=== PATIENT | female | born 1960 | race Caucasian/White ===

== ENCOUNTER 2021-11-12 15:22 | Outpatient (REF) | payer BC, SELFPAY ==
[2021-11-12 17:43] LABS: HCT 42.4 % (36.0-46.0); HGB 13.6 g/dL (11.2-15.7); MCH 30.3 pg (27.0-33.0); MCHC 32.1 % (32.0-36.0); MCV 94.4 fL (80-95); MPV 11.8 fL (8.0-11.0); Platelet Count 220 10^3/uL (130-400); RBC 4.49 10^6/uL (3.93-5.22); RDW 13.2 % (11.7-14.6); RDW-SD 45.5 fL; WBC 5.57 10^3/uL (4.4-10.8)
[2021-11-12 18:40] LABS: Anion Gap 7.7 mmol/L (3-11); BUN 12 mg/dL (7-18); CO2 29.3 mmol/L (21.0-32.0); CREATININE 0.8 mg/dL (0.55-1.02); Chloride 104 mmol/L (98-107); Glucose 94 mg/dL (74-106); Potassium 3.9 mmol/L (3.5-5.1); Sodium 141 mmol/L (136-145)
[2021-11-13 15:08] LABS: Calculated LDL 129 mg/dL (<100); Cholesterol 234 mg/dL (<200); HDL Cholesterol 81 mg/dL (40-60); Triglyceride 121 mg/dL (<150)
== END 2021-11-12 15:23 | disposition home or self-care (01) ==
LOC: NCHCN 15:22
PROVIDERS: Visit Provider Physician Assistant
DX: Z00.00 Encounter for general adult medical examination without abnormal findings (principal)
CPT/HCPCS: 80048; 80061; 85027

== ENCOUNTER 2021-11-21 00:56 | Outpatient (CLI) | payer BC, SELFPAY ==
--- NOTE | 2021-11-21 06:59 | DI.CT_ITS ---
Exam(s) CT ABDOMEN PELVIS WO/W EXAM: CT ABDOMEN PELVIS WO/W CLINICAL HISTORY: r/o mass/stone,hematuria,r31.9. TECHNIQUE: Imaging Protocol: Axial computed tomography images with coronal and sagittal reformatted images were created and reviewed CONTRAST MATERIAL: Intravenous: Omnipaque-350 100cc Oral: None COMPARISON: No exams were available for comparison FINDINGS: VISUALIZED LUNG BASES: No nodules nor pleural effusions evident. ABDOMEN: There is no ascites. LIVER: There is a tiny cyst in the caudate lobe. No other significant focal hepatic findings . Ther e is no dilatation of intrahepatic ducts. GALLBLADDER/BILIARY: No obvious gallbladder pathology. CBD is not dilated. PANCREAS: No evidence of pancreatic mass nor dilatation of the pancreatic duct. SPLEEN: Spleen is not enlarged. No obvious intrasplenic lesions. Splenic and portal veins are paten t. ADRENALS: There are no significant adrenal masses. KIDNEYS: Kidneys exhibit normal size and position and orientation. No cysts evident. No solid renal masses. No calculi nor hydronephrosis.. There is a solitary ureter on each side which exhibits nor mal diameter. No evidence of ureterocele. URINARY BLADDER: Appears unremarkable. No masses. No diverticuli. There are no radiopaque calculi in the urinary bladder. ABDOMINAL AORTA: Abdominal aorta is not enlarged. LYMPH NODES:There is no retroperitoneal nor paraaortic adenopathy. ABDOMINAL WALL: No evidence of significant anterior abdominal wall nor inguinal hernia. GI: There is no evidence of bowel obstruction, free air, nor abscess. PELVIS: GI: No evidence of appendicitis.There is sigmoid diverticulosis but no evidence of acute diverticulit is. LYMPH NODES: There is no intrapelvic nor inguinal adenopathy. REPRODUCTIVE: Uterus is surgically absent. There are no abnormal adnexal masses. There is no free f luid in the pelvis. OSSEOUS: No significant osseous lesions. IMPRESSION: 1. No significant findings in the kidneys. Solitary unremarkable appearing collecting system on each side. 2. No obvious abnormality urinary bladder. 3. The uterus is surgically absent. There are no abnormal adnexal masses and no free fluid evident. 4. Tiny 4 millimeter benign cyst incidentally noted in the caudate lobe of the liver. RADIATION DOSE DELIVERED: 2,734.31mGy.cm Total DLP DATA REPOSITORY: All CT scans at this facility are submitted to the National Radiology Data Registry (NRDR) Dose Index Registry (DIR) with the [employer] ([employer]). RADIATION OPTIMIZATION: All CT scans at this facility use at least one of these dose optimization te chniques: automated exposure control; mA and/or kV adjustment per patient size (includes targeted exa ms where dose is matched to clinical indication); or iterative reconstruction.
[2021-11-21 08:40] LABS: CREATININE 0.7 mg/dL (0.55-1.02)
[2021-11-21] MEDS: Omnipaque 350 MG/ML 100 ML BTL IJ (09:11)
== END 2021-11-21 01:16 ==
PROVIDERS: PCP Physician Assistant; Visit Provider Urology
DX: R31.9 Hematuria, unspecified (principal); Z01.812 Encounter for preprocedural laboratory examination; K76.89 Other specified diseases of liver
CPT/HCPCS: 74178; 82565; J3490

== ENCOUNTER 2021-12-22 00:28 | Outpatient (CLI) | payer BC, SELFPAY ==
--- NOTE | 2021-12-22 | DI.MAMMO_ITS ---
Exam(s) MAMMO SCREENING EXAM: MAMMO SCREENING CLINICAL HISTORY: SCREENING, NORMAL PHYSICAL EXAMINATION, Z00.00. TECHNIQUE: Bilateral full field digital CC and MLO mammographic images were obtained with 3D tomosyn thesis and utilizing computer aided detection (CAD). COMPARISON: Prior outside mammograms from 2013 were reviewed. This patient underwent excisional biopsy of the right breast numerous years ago (apparently benign) a nd has apparently undergone stereotactic biopsy the left breast, in February 2014, apparently benign. He r sister was diagnosed with breast cancer prior to age 50. FINDINGS: Fibroglandular tissue pattern is again noted to be moderately dense, this somewhat decreasing the sen sitivity mammogram for finding hidden underlying lesions There are no new significant radiographic findings in the immediate vicinity of the biopsy marker cli p in the lateral aspect of the left breast. There is a small benign microcalcification group anteriorly in the left breast which is unchanged fro m 2013. There is an asymmetric density anteriorly in the left breast seen on the CC view which is unchanged f rom 2013. In the right breast on 3D MLO imaging there is significant architectural distortion noted. There is a possibly that this may be related to the prior excisional biopsy of the right breast. Unfortunatel y the prior outside mammogram of 2013 was prior to 3D imaging and therefore difficult to compare. IMPRESSION: 1. Stable benign-appearing left breast findings. 2. Architectural distortion in the right breast, most evident on the MLO 3D view. Additional imaging required including spot views and ultrasound. BI-RADS Category 0 - Assessment Incomplete: Need additional imaging evaluation Breast Density - Category C - Heterogeneously dense Breast density Category C or D implies that the patient has dense breast tissue. Dense breast tissue can make it harder to find cancer on a mammogram. Dense breast tissue is also associated with an incr eased risk of breast cancer. This information about the result of the mammogram report was provided to the patient to raise their awareness. Use this report when you speak with the patient about their risks for breast cancer, which includes their family history. At that time, you may recommend additional screening tests (Ultrasoun d or MRI) as these tests may add significant information. A negative radiographic report should not delay biopsy if a dominant or clinically suspicious mass is present. Up to ten percent of cancers are not identified on mammography. A negative report may reinforce clinical impression. Adenosis and dense breasts may obscure an underlying neoplasm. False positive reports average 6 to 10%. Patient will receive a letter notifying them of these results.
--- NOTE | 2021-12-22 09:29 | DI.CTLCSR_ITS ---
Exam(s) CT CHEST LUNG CANCER SCREEN EXAM: CT CHEST LUNG CANCER SCREEN CLINICAL HISTORY: CIGARETTE SMOKER, F17.210 TECHNIQUE: Imaging Protocol: Axial computed tomography images with coronal and sagittal reformatted images were created and reviewed COMPARISON: No exams were available for comparison FINDINGS: Tracheobronchial tree: Patent where visualized. Mediastinum and Sonia: No dominant adenopathy or fluid collection. Pulmonary parenchyma: No consolidation or dominant measurable mass. Apical scarring. Lung Nodules: None. Pleura: No effusion or pneumothorax. Heart: The heart is not dilated. Minimal coronary artery calcifications are seen. Aorta: Thoracic aorta non-dilated. Upper abdomen: Unremarkable. Bones: Within normal limits for age.. Soft Tissues: Unremarkable. IMPRESSION: No masses or suspicious pulmonary nodules. Lung RADS Cat 1 - Negative: No nodules and definitely benign nodules Lung-RADS 1.0 CATEGORIES: Category 0 - Prior chest CT exam(s) being located for comparison. Category 1 - Annual screening in 12 months. No nodules or definitely benign nodules. Category 2 - Annual screening in 12 months. Benign appearance. Nodules with low likelihood of becomin g active cancer. Category 3 - 6-month follow-up. Probably benign. Short-term follow-up suggested. Nodules with low lik elihood of becoming active cancer. Category 4A - 3-month follow-up and CT/PET if >8 mm in size. Suspicious finding. Findings which requi re additional testing. Category 4B - Findings which require additional testing and tissue sampling. Category 4X - Category 3 or 4 nodules with additional features or imaging findings that increases the suspicion of malignancy. Modifier S- Potentially clinically significant findings (non lung cancer) RADIATION DOSE DELIVERED: 78.51mGy.cm Total DLP 1.84mGy CTDIvol DATA REPOSITORY: All CT scans at this facility are submitted to the National Radiology Data Registry (NRDR) Dose Index Registry (DIR) with the [employer] ([employer]). RADIATION OPTIMIZATION: All CT scans at this facility use at least one of these dose optimization te chniques: automated exposure control; mA and/or kV adjustment per patient size (includes targeted exa ms where dose is matched to clinical indication); or iterative reconstruction.
== END 2021-12-22 00:48 ==
PROVIDERS: PCP Physician Assistant; Visit Provider Physician Assistant
DX: Z00.00 Encounter for general adult medical examination without abnormal findings (principal); Z12.31 Encounter for screening mammogram for malignant neoplasm of breast; Z12.2 Encounter for screening for malignant neoplasm of respiratory organs; Z80.3 Family history of malignant neoplasm of breast; R92.8 Other abnormal and inconclusive findings on diagnostic imaging of breast; F17.210 Nicotine dependence, cigarettes, uncomplicated
CPT/HCPCS: 71271; 77063; 77067

== ENCOUNTER → 2022-01-19 02:31 | Outpatient (CLI) | payer BC, SELFPAY ==
--- NOTE | 2022-01-19 10:00 | DI.MAMMO_ITS ---
Exam(s) MAMMO SCREEN CALL BACK UNI EXAM: MAMMO SCREEN CALL BACK UNI CLINICAL HISTORY: F/U ABNL MAMMO, ARCHITECTURAL DISTORTION IN RT BREAST TECHNIQUE: Spot compression views and tomographic imaging were performed. COMPARISON: 2013 and 22 Dec 2021 FINDINGS: No suspicious masses or suspicious microcalcifications are seen. There is mild architectural distortion seen in the region of the previously noted biopsy. There has been no significant change from prior exams. IMPRESSION: BI-RADS Cat 2 - Benign Findings Yearly screening mammography is recommended. Breast Density - Category B, scattered fibroglandular densities.
== END ==
PROVIDERS: PCP Physician Assistant; Visit Provider Physician Assistant
DX: Z12.31 Encounter for screening mammogram for malignant neoplasm of breast (principal); R92.8 Other abnormal and inconclusive findings on diagnostic imaging of breast; N64.59 Other signs and symptoms in breast
CPT/HCPCS: 77063; 77067

== ENCOUNTER 2023-07-27 11:56 | Outpatient (REF) | payer BC, SELFPAY | END 2023-07-27 11:57 | disposition home or self-care (01) | LOC: LBN 11:56 | PROVIDERS: PCP Physician Assistant; Visit Provider Nurse Practitioner Gerontology | DX: R35.0 Frequency of micturition (principal); R39.15 Urgency of urination; N32.81 Overactive bladder | CPT/HCPCS: 87077; 87086; 87186 ==

== ENCOUNTER → 2023-07-28 03:40 | Outpatient (CLI) | payer BC, SELFPAY ==
--- NOTE | 2023-07-28 13:53 | DI.MAMMO_ITS ---
Exam(s) MAMMO SCREENING EXAM: MAMMO SCREENING CLINICAL HISTORY: SCREENING,Z12.31 TECHNIQUE: Mammograms were interpreted according to the usual protocol including computer analysis w [employer] CAD system, tomosynthesis and C-view imaging. COMPARISON: 2013 through 2021 FINDINGS: The breasts are composed of heterogeneously dense fibroglandular densities, Breast Density category C . No suspicious masses or suspicious microcalcifications are seen. Post biopsy scarring left breast. No skin thickening or abnormal axillary lymph nodes are seen. There has been no significant change from prior exams. IMPRESSION: BI-RADS Category 2 - Negative Mammogram with benign findings. Yearly screening mammography is recomm ended. Breast Density Category C, heterogeneously Dense. The mammogram demonstrates the patient's breast tissue is dense. Dense breast tissue is very common a nd is not abnormal but dense breast tissue can make it harder to find cancer on a mammogram. Also, de nse breast tissue may increase breast cancer risk. This information about the result of the mammogram report was provided to the patient to raise their awareness. Use this report when you speak with the patient about their risks for breast cancer, which includes their family history. At that time, you may recommend additional screening tests (Ultrasound or MRI) as they might be useful based on their r isk. A negative radiographic report should not delay biopsy if a dominant or clinically suspicious mass is present. Up to ten percent of cancers are not identified on mammography. A negative report may reinforce clinical impression. Adenosis and dense breasts may obscure an underlying neoplasm. False positive reports average 6 to 10%.
== END ==
PROVIDERS: PCP Physician Assistant; Visit Provider Physician Assistant
DX: Z12.31 Encounter for screening mammogram for malignant neoplasm of breast (principal)
CPT/HCPCS: 77063; 77067